=== PATIENT | male | born 1960 | race Caucasian/White ===

== ENCOUNTER 2017-11-18 11:14 | Inpatient (IN) | payer BC ==
--- NOTE | 2017-11-18 11:47 | ED ---
General Adult HPI - General Chief complaint: Psychiatric Symptoms Stated complaint: Suicidal Time Seen by Provider: 11/18/17 11:17 Source: patient, RN notes reviewed Mode of arrival: ambulatory Limitations: no limitations - History of Present Illness Initial comments: This a 57-year-old male who presents emergency Department stating that his sister wanted him to be evaluated for his depression. Patient states he has had some legal issues so he has been somewhat depressed lately but he is not suicidal has no suicidal thoughts. Patient states he told his history was somewhat depressed sister wanted him to be evaluated so she brought him here and he agreed to be evaluated because he believes nothing found him so that won' t be any problem. Patient states they [place] stating he did not try to jump out of the car or make any attempt to harm himself. Patient denies any drinking or drug use. Patient denies any physical complaints today. Patient denies any headache patient denies any numbness weakness. Patient denies chest pain difficult breathing shortest breath. Patient denies any recent fever chills or cough. Patient denies abdominal pain patient denies nausea vomiting diarrhea. - Related Data Home Medications Medication Instructions Recorded Confirmed Cyclobenzaprine [Flexeril] 10 mg PO BID PRN 11/18/17 11/18/17 Gabapentin [Neurontin] 600 mg PO TID 11/18/17 11/18/17 Hydrocodone/Acetaminophen [[place] 1 tab PO TID PRN 11/18/17 11/18/17 7.5-325] Losartan-Hctz 50-12.5 mg [Hyzaar 1 tab PO DAILY 11/18/17 11/18/17 50-12.5] Allergies Allergy/AdvReac Type Severity Reaction Status Date / Time No Known Allergies Allergy Verified 11/18/17 12:09 Review of Systems ROS Statement: Those systems with pertinent positive or pertinent negative responses have been documented in the HPI. ROS Other: All systems not noted in ROS Statement are negative. Past Medical History Past Medical History: Hypertension History of Any Multi-Drug Resistant Organisms: None Reported Past Surgical History: Back Surgery Past Psychological History: Depression Smoking Status: Never smoker Past Alcohol Use History: None Reported Past Drug Use History: None Reported General Exam - General Exam Comments Initial Comments: GENERAL: Patient is well-developed and well-nourished. Patient is nontoxic and well- hydrated and is in no acute distress. ENT: Neck is soft and supple. No significant lymphadenopathy is noted. Oropharynx is clear. Moist mucous membranes. Neck has full range of motion without eliciting any pain. EYES: The sclera were anicteric and conjunctiva were pink and moist. Extraocular movements were intact and pupils were equal round and reactive to light. Eyelids were unremarkable. PULMONARY: Unlabored respirations. Good breath sounds bilaterally. No audible rales rhonchi or wheezing was noted. CARDIOVASCULAR: There is a regular rate and rhythm without any murmurs gallops or rubs. ABDOMEN: Soft and nontender with normal bowel sounds. No palpable organomegaly was noted. There is no palpable pulsatile mass. SKIN: Skin is clear with no lesions or rashes and otherwise unremarkable. NEUROLOGIC: Patient is alert and oriented x3. Cranial nerves II through XII are grossly intact. Motor and sensory are also intact. Normal speech, volume and content. Symmetrical smile. MUSCULOSKELETAL: Normal extremities with adequate strength and full range of motion. LYMPHATICS: No significant lymphadenopathy is noted PSYCHIATRIC: Normal psychiatric evaluation. Patient denies any suicidal or homicidal ideations. Limitations: no limitations Course Vital Signs 11/18/17 11:24 Temperature 98.8 F Pulse Rate 88 Respiratory 20 Rate Blood Pressure 162/99 O2 Sat by Pulse 100 Oximetry Medical Decision Making - Medical Decision Making Patient was petition didn't seem valid. EPS interviewed the patient and the sister at the petition and determined the patient should be admitted. I filled out a clinical certification for the patient's admission. - Lab Data Lab Results 11/18/17 Range/Units 12:08 Urine Opiates Screen Not Detected (NotDetected) Ur Oxycodone Screen Not Detected (NotDetected) Urine Methadone Screen Not Detected (NotDetected) Ur Propoxyphene Screen Not Detected (NotDetected) Ur Barbiturates Screen Not Detected (NotDetected) U Tricyclic Antidepress Not Detected (NotDetected) Ur Phencyclidine Scrn Not Detected (NotDetected) Ur Amphetamines Screen Not Detected (NotDetected) U Methamphetamines Scrn Not Detected (NotDetected) U Benzodiazepines Scrn Not Detected (NotDetected) Urine Cocaine Screen Not Detected (NotDetected) U Marijuana (THC) Screen Not Detected (NotDetected) Disposition Clinical Impression: Suicidal ideation, Depression Disposition: TRANSFER TO PSYCH HOSP/UNIT Referrals: Franco Sheridan MD [Primary Care Provider] - 1-2 days Time of Disposition: 13:32
[2017-11-18 13:17] LABS: Amphetamine Screen,Urine Not Detected (NotDetected); Barbiturate Screen,Urine Not Detected (NotDetected); Benzodiazepines Screen,Urine Not Detected (NotDetected); Cocaine Screen,Urine Not Detected (NotDetected); Methadone Screen, Urine Not Detected (NotDetected); Opiate Screen,Urine Not Detected (NotDetected); Oxycodone Screen, Urine Not Detected (NotDetected); Phencyclidine Screen,Urine Not Detected (NotDetected); Tricyclic Antidepressant,Urine Not Detected (NotDetected); Urn Cannabinoid Scrn Not Detected (NotDetected)
[2017-11-18] MEDS ORDERED: HYDROcodone/APAP 7.5-325MG 1 EACH TAB PO ONE (14:06)
[2017-11-18] MEDS ORDERED: MAG HYDROX/AL HYDROX/SIMETH 30 ML CUP PO PRN (17:12)
[2017-11-18] MEDS ORDERED: MAGNESIUM HYDROXIDE 2,400 MG/10 ML CUP PO PRN (17:12)
[2017-11-18 18:05] VITALS: BMI 26.2
[2017-11-18] MEDS: CYCLOBENZAPRINE 10 MG TAB PO PRN (21:02)
[2017-11-18] MEDS: GABAPENTIN 300 MG CAP PO SCH (21:03)
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
[2017-11-19] MEDS: ACETAMINOPHEN TAB 325 MG TAB PO PRN (05:08)
[2017-11-19 08:26] LABS: Basophils # (A) 0.1 k/uL (0-0.2); Basophils % (A) 1 %; Eosinophils # (A) 0.1 k/uL (0-0.7); Eosinophils % (A) 1 %; HCT 43.2 % (39.0-53.0); HGB 13.9 gm/dL (13.0-17.5); Lymphocytes # (A) 1.3 k/uL (1.0-4.8); Lymphocytes % (A) 20 %; MCHC 32.2 g/dL (31.0-37.0); MCV 93.2 fL (80.0-100.0); Mean Platelet Volume 6.3; Monocytes # (A) 0.3 k/uL (0-1.0); Monocytes % (A) 5 %; Neutrophils # (A) 4.9 k/uL (1.3-7.7); Neutrophils % (A) 72 %; Platelet Count 335 k/uL (150-450); RBC 4.63 m/uL (4.30-5.90); RDW 13.5 % (11.5-15.5); WBC 6.8 k/uL (3.8-10.6)
[2017-11-19 08:50] LABS: ALT 45 U/L (21-72); AST 30 U/L (17-59); Albumin 4.4 g/dL (3.5-5.0); Alkaline Phosphatase 66 U/L (38-126); Anion Gap 8 mmol/L; Blood Urea Nitrogen 18 mg/dL (9-20); Calcium 9.8 mg/dL (8.4-10.2); Carbon Dioxide 29 mmol/L (22-30); Chloride 104 mmol/L (98-107); Cholesterol 208 mg/dL (<200); Glucose 93 mg/dL (74-99); HDL Cholesterol 59 mg/dL (40-60); LDL Cholesterol,Calculated 121 mg/dL (0-99); Potassium 4.8 mmol/L (3.5-5.1); Sodium 141 mmol/L (137-145); Total Bilirubin 0.6 mg/dL (0.2-1.3); Total Protein 7.2 g/dL (6.3-8.2); Triglycerides 139 mg/dL (<150)
[2017-11-19] MEDS: GABAPENTIN 300 MG CAP PO SCH ×3 (09:54→21:56)
[2017-11-19] MEDS: LOSARTAN-HCTZ 50-12.5 MG 1 EACH TAB PO SCH (09:54)
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
[2017-11-19] MEDS: CYCLOBENZAPRINE 10 MG TAB PO PRN (13:39)
[2017-11-19 17:29] LABS: Hemoglobin A1C 5.5 % (4.0-6.0)
[2017-11-19] MEDS: LURASIDONE 40 MG TAB PO SCH (18:03)
[2017-11-19] MEDS: NAPROXEN 250 MG TAB PO SCH (21:56)
[2017-11-20] MEDS: GABAPENTIN 300 MG CAP PO SCH ×3 (09:32→19:54)
[2017-11-20] MEDS: LOSARTAN-HCTZ 50-12.5 MG 1 EACH TAB PO SCH (09:32)
[2017-11-20] MEDS: CYCLOBENZAPRINE 10 MG TAB PO PRN ×2 (09:33→21:57)
[2017-11-20] MEDS: NAPROXEN 250 MG TAB PO SCH (09:35)
--- NOTE | 2017-11-20 14:28 | P.PN ---
Progress Note - Text Progress Note Date: 11/20/17 Interval History: Patient is a 57-year-old male who was seen today, he was dressed in a hospital gown and stated that he was being treated "sadistically" and this is why he signed a three-day notice. Patient states that he requires his opiate pain medication as he had recently been taking Grand View 7s because he was no longer using Grand View 5 and a fentanyl patch. When I questioned the patient regarding the fact that his UDS was negative for opiates he stated that he had been taking his Grand View 7s. Patient stated that he is not feeling suicidal , and the only reason that he had suicidal ideation while in [facility] was that he wasn't able to do anything other than walk around in the cell and was only out of the cell for 1 hour a day. When confronted with the fact that he was also facing serious criminal charges and did not have any impact on his feeling suicidal he shrugged his shoulders and said "what ever you say doc". Mental Status: Appearance/Attitude: Patient is dressed in a hospital gown, makes good eye contact was superficially cooperative. Behavior: Patient did not exhibit any psychomotor agitation or retardation nor did the patient appeared in any distress Speech/Language: Patient's speech was spontaneous of normal volume and rhythm and he was coherent. Thought Process: Patient is goal-directed, patient does not elaborate when encouraged to do so says very little patient does not exhibit any loose association or flight of ideas Thought Content: Patient denies any auditory or visual hallucinations no delusions or her annoyed ideation were elicited. Patient reports that he is being treated sadistically because he is not given his opiate pain medication for his back problems. Patient states he had been on Grand View and a fentanyl patch had recently stopped the fentanyl patch and this was the reason for the increase in the Grand View. Patient again insisted he was no longer suicidal because he was no longer in [facility] and not confine. When confronted with the seriousness of his legal situation he only shrugged his shoulders and stated "whatever you say doc". Patient states he only slept 1 hour last night because of his back pain. Suicidal/Homicidal Ideation: Patient denied any current suicidal or homicidal ideation Sensorium/Cognition: Patient is alert and oriented to person, place, and time and his recent and remote memory are grossly intact. Mood/Affect: Patient's mood was irritable, sarcastic and his affect was appropriate to his mood Insight/Judgment: Patient's insight and judgment are fair Assessment: Patient was quite sarcastic, stating that he is being treated sadistically because he wasn't being given his opiate pain medication for his back pain. Patient apparently had been maintained on both Grand View and a fentanyl patch in the past and had recently stopped using the patch and was increased to Grand View 7s. Patient continues to downplay the seriousness of the situation stating he was only suicidal in [facility] because he was confined and could not go outside or do anything other than walk around in the cell and stated to me that [facility] was not pleasant. Patient signed a three-day notice because he was not being given appropriate pain medication. When I discussed with him the standard of care for treating long-term chronic back pain and the fact that his UDS was negative and he became irritable and sarcastic. Patient has not been attending groups or activities today due to the fact that he did not sleep and is in excruciating back pain Plan: Patient continue on Latuda 20 mg at dinnertime, I suggested to him rescind his three-day notice and agreed to prescribe Grand View 5's twice a day when necessary for his pain and I will discontinue the nonsteroidal anti- inflammatory. Patient continues to require hospitalization to stabilize his mood. Should patient not rescind his three-day notice I discussed with the patient that I would restart the involuntary commitment process again.
[2017-11-20] MEDS: HYDROcodone/APAP 5-325MG 1 EACH TAB PO PRN ×2 (15:07→21:57)
[2017-11-20] MEDS: LURASIDONE 40 MG TAB PO SCH (17:54)
[2017-11-20] MEDS: LORazepam 1 MG TAB PO PRN (23:06)
[2017-11-21] MEDS: GABAPENTIN 300 MG CAP PO SCH ×3 (08:55→20:19)
[2017-11-21] MEDS: LOSARTAN-HCTZ 50-12.5 MG 1 EACH TAB PO SCH (08:55)
[2017-11-21] MEDS: HYDROcodone/APAP 5-325MG 1 EACH TAB PO PRN ×2 (08:55→20:20)
[2017-11-21] MEDS: CYCLOBENZAPRINE 10 MG TAB PO PRN ×2 (08:55→20:20)
--- NOTE | 2017-11-21 12:18 | PN ---
PROGRESS NOTE SUBJECTIVE: Patient was seen and interviewed in detail. He was dressed casually and found a little bit down and depressed. He reports he has been still feeling very depressed and down, though he denies any active suicidal or homicidal ideation. He reports he was very depressed in longterm and was actively suicidal, but yet he feels better. He denies any active suicidal ideation. He still has trouble sleeping. He is working on his coping skills. He wants to get better and he did not wish for early discharge to [facility]. Denies any other issues. Med compliant, tolerating well, reporting no side effects. MENTAL EXAMINATION: Patient is alert, awake, oriented x4. He is dressed daily. Made poor eye contact. Speech few word sentences. Mood dysphoric and anxious with congruent affect. He denies any suicidal or homicidal ideation. No symptoms of psychosis seen. No agitation, aggression. Attention was good. No auditory wheel hallucinations. No paranoid delusions. Attention span is good. Intellect is average. Insight and judgment improving slowly individually. ASSESSMENT AND PLAN: Bipolar disorder type 2, most recent episode depression. PLAN OF TREATMENT: We would titrate up Latuda to 40 mg to optimize the efficacy of medication. We will also start him on trazodone 50 mg at bedtime to help with sleep and encouraged to attend groups and meetings. Supportive therapy provided. BELLO / SHERIDANN: [id number] /
[2017-11-21 16:12] LABS: Appearance,Urine Clear (Clear); Bilirubin,Urine Negative (Negative); Blood,Urine Negative (Negative); Color,Urine Yellow; Glucose,Urine (UA) Negative (Negative); Ketones,Urine Negative (Negative); Leukocyte Esterase,Urine Negative (Negative); Nitrite,Urine Negative (Negative); PH, Urine 6.5 (5.0-8.0); Protein,Urine Negative (Negative); Specific Gravity,Urine 1.017 (1.001-1.035); Urobilinogen,Urine <2.0 mg/dL (<2.0)
[2017-11-21] MEDS: LURASIDONE 40 MG TAB PO SCH (17:56)
[2017-11-21] MEDS: traZODone HCL 50 MG TAB PO SCH (21:00)
[2017-11-21] MEDS: LORazepam 1 MG TAB PO PRN (21:01)
[2017-11-22] MEDS: GABAPENTIN 300 MG CAP PO SCH ×3 (09:21→20:18)
[2017-11-22] MEDS: LOSARTAN-HCTZ 50-12.5 MG 1 EACH TAB PO SCH (09:21)
--- NOTE | 2017-11-22 14:10 | PN ---
PROGRESS NOTE DATE OF SERVICE: November 22, 2017. The patient seen, interviewed and found feeling somewhat better though he still reports feeling depressed and down during the day. He is using his coping skills. He now denies any active suicidal or homicidal ideation. He reports his mood symptoms are responding to the current medications. He denies having any issues with medication. MENTAL STATUS EXAMINATION: Patient is alert, awake, oriented x4. Has fair eye contact. Speech, few word sentences in soft tone. Mood, still dysphoric and anxious with congruent affect. He denies any suicidal ideation. I do not see him responding to internal stimulation or hallucinations seen. Attention span is good. Insight and judgment improving slowly individually. ASSESSMENT: Bipolar disorder type 2, most recent episode depression. PLAN: We will continue with the current medication as he has been responding well. He did like the higher dose of Latuda, so we will keep it the 40. Encourage attend groups and meetings. Support therapy provided. BELLO / MANUELA: [id number] /
[2017-11-22] MEDS: LURASIDONE 40 MG TAB PO SCH (17:56)
[2017-11-22] MEDS: HYDROcodone/APAP 5-325MG 1 EACH TAB PO PRN (20:18)
[2017-11-22] MEDS: CYCLOBENZAPRINE 10 MG TAB PO PRN (20:18)
[2017-11-22] MEDS: LORazepam 1 MG TAB PO PRN (21:13)
[2017-11-22] MEDS: traZODone HCL 50 MG TAB PO SCH (21:13)
[2017-11-23] MEDS: HYDROcodone/APAP 5-325MG 1 EACH TAB PO PRN ×2 (07:59→20:14)
[2017-11-23] MEDS: LOSARTAN-HCTZ 50-12.5 MG 1 EACH TAB PO SCH (07:59)
[2017-11-23] MEDS: CYCLOBENZAPRINE 10 MG TAB PO PRN ×2 (07:59→20:14)
[2017-11-23] MEDS: GABAPENTIN 300 MG CAP PO SCH ×3 (07:59→21:18)
--- NOTE | 2017-11-23 12:42 | P.PN ---
Progress Note - Text Progress Note Date: 11/23/17 Interval History: Patient is a 57-year-old male who was seen today, patient did not spontaneously discuss any issues or concerns but only responded to my questions with very brief and limited information. Patient reported that he slept about 4 hours last night with the 50 mg a trazodone and that the longest period of sleep he is had. Patient states that the increase and the Latuda has been beneficial and he feels less depressed but could not tell me what had changed. Patient discussed that he will return to live in [place], that his sister is leaving for [place] shortly and that he has no other family support. He states he signed a release of information for us to ask his if his guns were removed from their home in [place]. Patient states that he is not currently having any suicidal ideation, states that he's feeling less depressed although he could not elaborate further on what's changed for him. Mental Status: Appearance/Attitude: Patient is casually dressed, makes intermittent eye contact and was cooperative Behavior: Patient does not exhibit any psychomotor agitation or retardation Speech/Language: Patient's speech is spontaneous, normal volume and rhythm and he is coherent Thought Process: Patient is goal-directed, patient responded to my questions with very brief answers limited elaboration. No evidence of loose association or flight of ideas Thought Content: Patient denies any auditory or visual hallucinations and no delusions or paranoid ideation were elicited. Patient states he slept about 4 hours straight last night with the trazodone and reported no side effects from it. He states that he feels less depressed on the Latuda but could not tell me what that meant. Patient states that he has been eating fairly well. Suicidal/Homicidal Ideation: Patient denied any current suicidal or homicidal ideation Sensorium/Cognition: Patient is alert and oriented to person, place, and time and his recent and remote memory grossly intact Mood/Affect: Patient's mood remains bland and his affect blunted Insight/Judgment: Patient's insight and judgment are intact Assessment: Patient today was less sarcastic, however he was again bland and did not elaborate on his responses to my questions. He reported he was feeling less depressed but could not tell me how he was feeling less depressed. Patient continues to adamantly deny that he's having any current suicidal ideation and has no current intent to act on his prior plans. Patient states that he slept 4 hours straight last night on the trazodone and reports no side effects from the medication. Patient felt the increase in the Latuda had been beneficial in decreasing his symptoms of depression but he could not elaborate on what those were. Patient has been attending groups and activities. Patient states he signed a release of information for his for us to see if the guns removed from their home. Patient states that he will live in their other home in [place] on his own and that his sister is leaving for [place] on vacation. He states he has no other source of family support. Plan: Patient will continue on Latuda 40 mg and I will move it to noon time as the patient wondered if it was causing him some sleep difficulties. Patient's trazodone will be increased to 75 mg at bedtime to assist with his sleep. Patient and I discussed possible discharge mid week, will need to arrange for follow-up care in [place]. Patient has no transportation currently as his car has been impounded.
[2017-11-23] MEDS: LURASIDONE 40 MG TAB PO SCH (12:51)
[2017-11-23] MEDS: traZODone HCL 50 MG TAB PO SCH (21:18)
[2017-11-23] MEDS: LORazepam 1 MG TAB PO PRN (21:19)
[2017-11-24] MEDS: GABAPENTIN 300 MG CAP PO SCH ×3 (08:20→20:50)
[2017-11-24] MEDS: LOSARTAN-HCTZ 50-12.5 MG 1 EACH TAB PO SCH (08:20)
[2017-11-24] MEDS: CYCLOBENZAPRINE 10 MG TAB PO PRN ×2 (08:21→19:17)
[2017-11-24] MEDS: HYDROcodone/APAP 5-325MG 1 EACH TAB PO PRN ×2 (08:21→19:17)
--- NOTE | 2017-11-24 12:35 | P.PN ---
Progress Note - Text Progress Note Date: 11/24/17 Interval History: Patient is a 57-year-old male who was seen today and he reports that he slept for 6 straight hours and then was able to return to sleep and slept a total of probably 7-1/2. Patient states that he is not having any side effects from the trazodone or Latuda and felt the Latuda was working well and taking it at lunchtime went well for him yesterday. Patient and I discussed the fact that he has no support system on the outside his sister will be away until the beginning of December, he states that he was told by the bonds person that he's not allowed to return to his other home. Patient states he's had no contact with anyone other than his sister since his situation began. He states he has had no contact with his children. Patient states that he is not currently having any suicidal ideation, we discussed his thoughts regarding suicide as a solution to his problems which he denied stating that it was not something he was currently thinking about nor did he see it as a solution. 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 Patient reports that he is not feeling depressed feels that the medication has been beneficial. He reported no other concerns and states that he will return to his home in [place], has doll that he withdrew from the bank and states he will live on that as well as look for part-time job in [place]. Mental Status: Appearance/Attitude: Patient is casually dressed, makes good eye contact and was cooperative. Behavior: Patient does not exhibit any psychomotor agitation or retardation. Speech/Language: Patient is spontaneous, speech is of normal volume and rhythm and he is coherent. Thought Process: Patient is goal-directed there is no evidence of loose association or flight of ideas Thought Content: Patient denied any auditory or visual hallucinations and no delusions or paranoid ideation were elicited. Patient stated that he wasn't feeling hopeless or helpless, states that he feels the medication has been beneficial in targeting his depression. Patient states that he slept for 6 hours last night straight and feels this has been the longest he's been able to sleep. Patient reports no side effects from the medication. Patient and I discussed his plans for once he is released from the hospital he return to live in the home at [place], he states that he has not had contact with any friends or family members other than his sister since he was placed in long term. Patient and I discussed his plans for finding part-time work, he states he will look for something in [place]. Patient and I also discussed his coping strategies and he feels that he is coping appropriately at this time. Suicidal/Homicidal Ideation: Patient denied any current suicidal or homicidal ideation, we discussed his suicidal statements and letters to his sister that he made while he was in long term and whether he still viewed suicide as an option which he vehemently denied. Sensorium/Cognition: Patient is alert and oriented to person, place, and time and his recent and remote memory are grossly intact Mood/Affect: Patient's mood is brighter today and his affect is less blunted Insight/Judgment: Patient's insight and judgment are fair Assessment: Patient reports that he slept well last evening, stating that he is no longer feeling hopeless or helpless and states that he doesn't see suicide as a solution to his situation. Patient states that he has no contact with any friends or family other than his sister since he was placed in long term. Patient states he plans to find a part-time job in [place] once he is discharged to assist in supporting himself. Patient states he has no difficulty living alone in [place], he is agreeable to outpatient psychiatric care once he is discharged. Patient feels the medications have been beneficial in improving his mood and sleep. Patient has been attending groups and activities but his participation is limited. Patient continues to vehemently deny that he's having any suicidal ideation at this time and that he sees it as a solution to his problems. Plan: Patient will continue on Latuda 40 mg at lunchtime and trazodone 75 mg at bedtime, patient and I discussed possible discharge tomorrow once outpatient psychiatric follow-up care has been arranged.
[2017-11-24] MEDS: LURASIDONE 40 MG TAB PO SCH (12:54)
[2017-11-24] MEDS: LORazepam 1 MG TAB PO PRN (20:50)
[2017-11-24] MEDS: traZODone HCL 50 MG TAB PO SCH (20:50)
[2017-11-25] MEDS ORDERED: diphenhydrAMINE 50 MG CAP PO ONE (00:25)
[2017-11-25] MEDS: LORazepam 1 MG TAB PO PRN ×2 (04:44→20:50)
[2017-11-25] MEDS: ACETAMINOPHEN TAB 325 MG TAB PO PRN ×2 (04:44→16:25)
[2017-11-25] MEDS: LOSARTAN-HCTZ 50-12.5 MG 1 EACH TAB PO SCH (08:46)
[2017-11-25] MEDS: GABAPENTIN 300 MG CAP PO SCH ×3 (08:46→20:50)
[2017-11-25] MEDS: HYDROcodone/APAP 5-325MG 1 EACH TAB PO PRN ×2 (08:48→20:18)
[2017-11-25] MEDS: CYCLOBENZAPRINE 10 MG TAB PO PRN ×2 (08:48→20:19)
[2017-11-25] MEDS: LURASIDONE 40 MG TAB PO SCH (12:52)
--- NOTE | 2017-11-25 17:20 | P.PN ---
Progress Note - Text Progress Note Date: 11/25/17 Interval History: Patient is a 57-year-old male who was seen today, patient and I discussed his discharge and his lack of support. Patient states that his sister's feeling person that he has to speak with cheese and why until sometime in December. Patient stated that his crossing guard told him it would take at least 6 weeks before they had a trial date. Patient states he didn't sleep last night because of noise in the other room, states he did take Ativan later and fell sleep for 3-4 hours early in the morning. Patient reported that he feels the Latuda has been beneficial denied feeling depressed or hopeless and stated he was not having any suicidal ideation at this time. Patient continues to state that he is not suicidal, that he feels his statements while he was in [facility] were due to being confined and he no longer feels that way. Mental Status: Appearance/Attitude: Patient is casually dressed, makes eye contact and was cooperative Behavior: Patient did not display any psychomotor agitation or retardation Speech/Language: patient's speech was spontaneous of normal volume and rhythm and he was coherent Thought Process: patient was goal-directed there is no evidence of loose association or flight of ideas Thought Content: patient denied any auditory or visual hallucination and no delusions or paranoid ideation were elicited. Patient states he is not feeling hopeless or helpless, states he feels comfortable with his crossing guard and is awaiting a trial date which he states should be set within the next 6 weeks or so. Patient states that he feels comfortable returning to the [place] home , states that he is planning on looking for a part-time job. Patient states that he is eating well but last night did not sleep well due to noise in the other room. Suicidal/Homicidal Ideation: patient denies any current suicidal or homicidal ideation Sensorium/Cognition: patient is alert and oriented to person, place, and time and his recent and remote memory grossly intact Mood/Affect: patient's mood was slightly brighter today and his affect was appropriate to his mood Insight/Judgment: patient's insight and judgment are fair Assessment: patient and I discussed discharge today however I discussed with him that I needed to confirm whether the guns that he had were removed from his home in [place] [address] or not. Patient did sign a release of information for us to speak with his crossing guard who was called and stated that he was unaware of what they had been removed or not and would try to find out for us. Patient and I discussed continuing his medications and his current dosages and not increasing the trazodone due to his poor sleep last night. Patient reports no side effects from the medication. Patient has been attending groups and activities. Patient continues to report that he is coping with his current legal situation and denies any suicidal thoughts at this time. Plan: as we could not confirm whether the patient's guns had been confiscated or not his discharge will be delayed until I can confirm them as I view this patient is a high risk due to his statements that were made in [place], his current legal situation and lack of a support system. Patient will continue on Latuda 40 mg at lunch time and trazodone 75 mg at bedtime as well as melatonin. Patient was told about the need to confirm whether the weapons are out of the house or not and he was agreeable with this and hoping that his crossing guard would find out tomorrow.
[2017-11-25] MEDS: traZODone HCL 50 MG TAB PO SCH (20:50)
[2017-11-26 06:38] VITALS: BP 128/83; PULSE 78; RESP 16; TEMP 97.7
[2017-11-26] MEDS: LOSARTAN-HCTZ 50-12.5 MG 1 EACH TAB PO SCH (08:34)
[2017-11-26] MEDS: GABAPENTIN 300 MG CAP PO SCH ×2 (08:34→15:17)
[2017-11-26] MEDS: HYDROcodone/APAP 5-325MG 1 EACH TAB PO PRN (08:34)
[2017-11-26] MEDS: CYCLOBENZAPRINE 10 MG TAB PO PRN (08:34)
[2017-11-26] MEDS: LURASIDONE 40 MG TAB PO SCH (12:47)
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
== END 2017-11-26 16:05 | disposition home or self-care (01) | DRG 885 ==
LOC: EC 11:14 → 3MHU 17:05
PROVIDERS: ADMIT Psychiatry & Neurology Psychiatry; ATTEND Psychiatry & Neurology Psychiatry
DX: F31.81 Bipolar II disorder (principal); R45.851 Suicidal ideations; I10 Essential (primary) hypertension; G47.9 Sleep disorder, unspecified; M54.9 Dorsalgia, unspecified; Z65.3 Problems related to other legal circumstances; Z79.899 Other long term (current) drug therapy; Z90.49 Acquired absence of other specified parts of digestive tract; Z81.8 Family history of other mental and behavioral disorders; Z81.1 Family history of alcohol abuse and dependence; Z62.810 Personal history of physical and sexual abuse in childhood; Z82.49 Family history of ischemic heart disease and other diseases of the circulatory system; Z80.0 Family history of malignant neoplasm of digestive organs
CPT/HCPCS: 80053; 80061; 80306; 81003; 82075; 83036; 84443; 85025; 99285